=== PATIENT | female | born 1935 | race Two or more races ===

== ENCOUNTER 2017-06-27 18:46 | Emergency (ER) | payer OTHER ==
[~2017-06-27] VITALS: Ht 157.5 cm; Wt 68.0 kg
[~2017-06-27 18:46] MED LIST: ATORVASTATIN CA40 MG PO; COD LIVER OIL1 EACH PO; KETO10TA2 PO; LEVAQUIN750 MG PO; METFORMIN HCL500 M1 PO; NABUMETONE500 MG PO; PARA EL COLESTEROL; PERCOCET 5/3251 TAB PO; PLAVIX75 MG PO; PRELONE15 MG/5 ML PO; SYNTHROID50 MCG PO; SYNTHROID75 MCG PO; TUSSI PRES-B L120 M1 PO; XOPENEX0.63 MG/3 IH; [UNRECOGNIZED DRUG - OTHER] PO
== END 2017-06-27 22:13 | disposition home or self-care (01) ==
LOC: ER 18:46
DX: L03.031 Cellulitis of right toe (principal)

== ENCOUNTER 2017-06-28 18:37 | Emergency (ER) | payer OTHER ==
[~2017-06-28] VITALS: Ht 160 cm; Wt 79.4 kg
== END 2017-06-28 22:08 ==
LOC: ER 18:37
DX: E11.628 Type 2 diabetes mellitus with other skin complications (principal); L08.89 Other specified local infections of the skin and subcutaneous tissue; S90.46 Insect bite (nonvenomous) of toe; W57.XXXS Bitten or stung by nonvenomous insect and other nonvenomous arthropods, sequela

== ENCOUNTER → 2018-02-18 | Emergency (ER) | payer OTHER ==
[~2018-02-18] VITALS: Ht 162.6 cm; Wt 74.8 kg
[~2018-02-18] MED LIST changes: +PLAVIX75 MG; +SYNTHROID75 MCG
== END | disposition left against medical advice (07) ==
LOC: ER 08:45
DX: M79.605 Pain in left leg (principal); M25.562 Pain in left knee

== ENCOUNTER 2018-11-24 12:09 | Emergency (ER) | payer OTHER ==
[~2018-11-24] VITALS: Ht 162.6 cm; Wt 70.3 kg
[2018-11-24] MEDS ORDERED: LEVAQUIN500 MG PO (15:37)
== END 2018-11-24 15:51 | disposition home or self-care (01) ==
LOC: ER 12:09
DX: L03.031 Cellulitis of right toe (principal)

== ENCOUNTER 2020-01-16 19:45 | Emergency (ER) | payer OTHER ==
[~2020-01-16] VITALS: Ht 162.6 cm; Wt 68.0 kg
[~2020-01-16 19:45] MED LIST changes: +LEVAQUIN500 MG PO
== END 2020-01-17 01:58 | disposition home or self-care (01) ==
LOC: ER 19:45
DX: K52.9 Noninfective gastroenteritis and colitis, unspecified (principal)

== ENCOUNTER → 2022-09-27 | Emergency (ER) | payer OTHER | END | disposition left against medical advice (07) | LOC: ER 18:10 | DX: Z53.21 Procedure and treatment not carried out due to patient leaving prior to being seen by health care provider (principal) ==